=== PATIENT | female | born 1930 | race Caucasian/White ===

== ENCOUNTER → 2016-10-27 | Outpatient (CLI) | payer MEDICARE, OTHER ==
[~2016-10-27] MED LIST: ACYC-113 PO; ALBU90AE INH; ALEN70TA3 PO; AMLO10TA2 PO; ASCO500C2 PO; BIOT5CAP2 PO; CALC0.25 PO; CHOL200012 PO; CLON0.1T PO; DENO60DI SC; DOCU-30 PO; DOCU100T3 PO; DOXY-168 PO; EPOE10003 SC; FERR325T63 PO; FOLI-17 PO; FURO-92 PO; FURO20TA3 PO; GLIP2.5T3 PO; HYDR-3240 PO; HYDR-3241 PO; HYDR100T25 PO; LATA2.5D3 EACHEYE; LOSA100T6 PO; METH750T2 PO; METO25TA35 PO; MULT-208 PO; OXYC-302 PO; SEVE800T8 PO; SIMV10TA3 PO; SODI650T PO; TERA2CAP3 PO; VITA1TAB28 PO; WARF2.5T PO; WARF2.5T73 PO; WARF5TAB PO; WARF5TAB7 PO; [UNRECOGNIZED DRUG - OTHER] EACHEYE
[2016-10-27 10:54] LABS: HEMOGLOBIN 10.8 g/dL (11.7-16.4)
[2016-10-27 10:58] LABS: ASPARTATE AMINO TRANSFERASE 17 U/L (15-37); BLOOD UREA NITROGEN 34 mg/dL (7-18)
== END | disposition home or self-care (01) ==
LOC: STAR 09:19
PROVIDERS: ATTEND Surgery
DX: Z01.818 Encounter for other preprocedural examination (principal); R79.1 Abnormal coagulation profile
CPT/HCPCS: 36415; 80053; 85025; 85610; 85730; 93005

== ENCOUNTER 2016-10-31 08:18 | Observation (INO) | payer MEDICARE, OTHER ==
[~2016-10-31] VITALS: Ht 152.4 cm; Wt 49.3 kg
[~2016-10-31 08:18] MED LIST changes: +BUPIVACAINE/PF-EPI 0.25% 1:200K ONE
[2016-10-31] MEDS ORDERED: SODIUM CHLORIDE 0.9% 1,000 ML IV SCH (08:58)
[2016-10-31] MEDS ORDERED: LIDOCAINE 1%, 2ML SQ PRN (09:00)
[2016-10-31] MEDS ORDERED: LIDOCAINE 1%, 2ML ONE (09:04)
[2016-10-31] MEDS ORDERED: HYDROmorphone 2 MG/ML, 1ML ONE (09:05)
[2016-10-31] MEDS: HYDROmorphone 2 MG/ML, 1ML IVPush PRN ×2 (09:26→09:38)
[2016-10-31 09:39] LABS: BLOOD UREA NITROGEN 59 mg/dL (7-18)
[2016-10-31] MEDS ORDERED: FENTANYL PF 100 MCG/2ML ONE ×2 (10:46→12:58)
[2016-10-31] MEDS ORDERED: NEOSTIGMINE 1 MG/ML, 10ML ONE (11:10)
[2016-10-31] MEDS ORDERED: PROPOFOL 10 MG/ML, 20ML ONE (11:10)
[2016-10-31] MEDS ORDERED: ONDANSETRON 2MG/ML, 2ML ONE (11:10)
[2016-10-31] MEDS ORDERED: ROCURONIUM 10 MG/ML ONE (11:10)
[2016-10-31] MEDS ORDERED: GLYCOPYRROLATE 0.2MG/1ML ONE (11:10)
[2016-10-31] MEDS ORDERED: CEFAZOLIN 1,000 MG ONE (11:10)
[2016-10-31] MEDS ORDERED: OXYcodone 5 MG/5 ML ORAL.SOL UDC ONE (12:24)
[2016-10-31] MEDS ORDERED: HYDROmorphone 1 MG/ML, 1ML IV PRN (12:30)
[2016-10-31] MEDS ORDERED: ALBUTEROL SULFATE 2.5 MG/3 ML NPPB PRN (12:30)
[2016-10-31] MEDS ORDERED: EPHEDRINE 50 MG/ML, 1ML IVPush PRN (12:30)
[2016-10-31] MEDS ORDERED: OXYcodone 5 MG/5 ML ORAL.SOL UDC PO PRN (12:30)
[2016-10-31] MEDS ORDERED: ONDANSETRON 2MG/ML, 2ML IVPush PRN (12:30)
[2016-10-31] MEDS ORDERED: hydrALAzine 20 MG/ML, 1ML IV PRN (12:30)
[2016-10-31] MEDS ORDERED: ACETAMINOPHEN 325 MG TABLET PO PRN (12:30)
[2016-10-31] MEDS ORDERED: FENTANYL PF 100 MCG/2ML IV PRN (12:30)
[2016-10-31 12:52] LABS: IOPTH BASELINE 147 pg/mL
[2016-10-31] MEDS ORDERED: morphine SULFATE 10 MG/ML, 1ML IV PRN (14:00)
[2016-10-31] MEDS ORDERED: LACTATED RINGERS 1,000 ML IV SCH (14:00)
[2016-10-31] MEDS ORDERED: HYDROcodone/APAP 5/325 TABLET PO PRN (14:00)
[2016-10-31] MEDS ORDERED: ONDANSETRON 2MG/ML, 2ML IV PRN (14:00)
[2016-10-31] MEDS ORDERED: METHOCARBAMOL 750 MG TABLET PO PRN (14:30)
[2016-10-31] MEDS ORDERED: DOCUSATE 100 MG CAPSULE PO PRN (14:30)
[2016-10-31] MEDS ORDERED: ALBUTEROL SULFATE 2.5 MG/3 ML HHN PRN (14:30)
[2016-10-31] MEDS ORDERED: CALCITRIOL 0.25 MCG CAPSULE PO SCH (15:00)
[2016-10-31] MEDS: FOLIC ACID 1 MG TABLET PO SCH (15:30)
[2016-10-31] MEDS: ASCORBIC ACID 500 MG TABLET PO SCH (15:30)
[2016-10-31] MEDS: CHOLECALCIFEROL 1,000 UNIT TABLET PO SCH (15:30)
[2016-10-31] MEDS: CALCIUM CARBONATE 500 MG TAB.CHEW PO SCH ×2 (16:57→21:07)
[2016-10-31] MEDS: AMLODIPINE 5 MG TABLET PO SCH (17:00)
[2016-10-31] MEDS: SEVELAMER 800MG TABLET PO SCH (18:24)
[2016-10-31 19:26] VITALS: BP 152/56
[2016-10-31] MEDS ORDERED: LATANOPROST OPHTH 0.005%, 2.5ML EACHEYE SCH (21:00)
[2016-10-31] MEDS ORDERED: SIMVASTATIN 10 MG TABLET PO SCH (21:00)
[2016-10-31] MEDS ORDERED: TERAZOSIN 2MG CAPSULE PO SCH (21:00)
[2016-10-31] MEDS: FERROUS SULFATE 325 MG TABLET PO SCH (21:06)
[2016-11-01 00:02] VITALS: BP 157/52
[2016-11-01 03:15] VITALS: BP 125/71
[2016-11-01 03:52] VITALS: BP 153/64
[2016-11-01 07:08] VITALS: BP 149/61
[2016-11-01] MEDS: AMLODIPINE 5 MG TABLET PO SCH (08:57)
[2016-11-01] MEDS: ASCORBIC ACID 500 MG TABLET PO SCH (09:00)
[2016-11-01] MEDS: FOLIC ACID 1 MG TABLET PO SCH (09:00)
[2016-11-01] MEDS ORDERED: MULTIVITS,STRESS FORMULA 1 TABLET PO SCH (09:00)
[2016-11-01] MEDS ORDERED: LOSARTAN 50MG TABLET PO SCH (09:00)
[2016-11-01] MEDS ORDERED: WARFARIN 5 MG TABLET PO-COUM SCH (09:00)
[2016-11-01] MEDS: FERROUS SULFATE 325 MG TABLET PO SCH (09:00)
[2016-11-01] MEDS: CHOLECALCIFEROL 1,000 UNIT TABLET PO SCH (09:00)
[2016-11-01] MEDS: SEVELAMER 800MG TABLET PO SCH ×2 (09:01→11:28)
[2016-11-01] MEDS ORDERED: HYDR-3240 PO (09:20)
[2016-11-01 13:56] LABS: HEP B SURF. AB 20.5 mIU/mL (0.0-10.0)
[2016-11-01 14:29] VITALS: BP 152/51
== END 2016-11-01 16:00 | disposition home or self-care (01) ==
LOC: OUT 08:18 → 4NOR 13:38 → OUT 21:55 → 4NOR 21:55
PROVIDERS: ADMIT Surgery; ATTEND Surgery
DX: E21.0 Primary hyperparathyroidism (principal); D35.1 Benign neoplasm of parathyroid gland; D63.1 Anemia in chronic kidney disease; N18.6 End stage renal disease; I12.0 Hypertensive chronic kidney disease with stage 5 chronic kidney disease or end stage renal disease; E83.52 Hypercalcemia; M81.0 Age-related osteoporosis without current pathological fracture; J45.909 Unspecified asthma, uncomplicated; G89.18 Other acute postprocedural pain; N25.0 Renal osteodystrophy; E46 Unspecified protein-calorie malnutrition; Z99.2 Dependence on renal dialysis; Z90.49 Acquired absence of other specified parts of digestive tract; Z90.710 Acquired absence of both cervix and uterus
CPT/HCPCS: 36415; 60500; 80048; 82040; 82310; 82962; 83970; 85610; 86704; 86706; 87340; 88305; 88333; C1760; G0378; J0690; J1170; J2405; J2704; J2710; J3010; J3490; J7030; J7120

== ENCOUNTER → 2017-02-02 | Outpatient (CLI) | payer MEDICARE, OTHER ==
[~2017-02-02] MED LIST changes: -BIOT5CAP2 PO; +BIOT5CAP3 PO; -BUPIVACAINE/PF-EPI 0.25% 1:200K ONE
== END | disposition home or self-care (01) ==
LOC: CFH 10:38
PROVIDERS: ATTEND Nurse Practitioner Family
DX: Z13.820 Encounter for screening for osteoporosis (principal); M80.88XS Other osteoporosis with current pathological fracture, vertebra(e), sequela
CPT/HCPCS: 77080

== ENCOUNTER → 2017-11-28 | Outpatient (CLI) | payer MEDICARE, OTHER ==
[~2017-11-28] MED LIST changes: -CHOL200012 PO; +CHOL200074 PO; +DOCU-131 PO; -DOCU-30 PO; -DOXY-168 PO; +DOXY100T10 PO; +WARF-36 PO; -WARF5TAB7 PO
== END ==
LOC: RAD 11:06
PROVIDERS: ATTEND Orthopaedic Surgery Orthopaedic Surgery of the Spine
DX: S22.050A Wedge compression fracture of T5-T6 vertebra, initial encounter for closed fracture (principal); M85.89 Other specified disorders of bone density and structure, multiple sites; X58.XXXA Exposure to other specified factors, initial encounter; Y93.89 Activity, other specified; Y92.89 Other specified places as the place of occurrence of the external cause; Y99.8 Other external cause status
CPT/HCPCS: 78306; A9503

== ENCOUNTER 2019-05-22 17:51 | Inpatient (IN) | payer MEDICARE ==
[~2019-05-22] VITALS: Ht 152.4 cm; Wt 47.0 kg
[~2019-05-22 17:51] MED LIST changes: -AMLO10TA2 PO; +AMLO10TA8 PO; -CLON0.1T PO; +CLON0.1T22 PO; +LOSA100T14 PO; -LOSA100T6 PO; +WARF2.5T32 PO; -WARF2.5T73 PO
--- NOTE | 2019-05-22 18:12 | NUR ---
PT REPORTS BEING SOB FOR 2 WEEKS. NORMALLY CAN WALK 3 FLIGHTS OF STAIRS, STATES "3 STEPS I AM OUT OF BREATH". UNABLE TO LAY FLAT. RA IS 88%. APPLIED 2 LO2 NOW, 92%. DIALYSIS TODAY. PT IS NOT IN DISTRESS. RESPIRATOINS EVEN AND UNLABORED
[2019-05-22 18:59] LABS: BASOPHILS # (AUTO) 0.02 x10^3/uL (0-0.1); BASOPHILS % (AUTO) 1 % (0-1); EOSINOPHILS # (AUTO) 0.04 x10^3/uL (0-0.4); EOSINOPHILS % (AUTO) 1 % (1-7); LYMPHOCYTES # (AUTO) 0.86 x10^3/uL (1-3.4); LYMPHOCYTES % (AUTO) 22 % (22-44); MD NO; MEAN CORPUSCULAR HGB CONC 33.6 g/dL (32.4-35.8); MEAN CORPUSCULAR VOLUME 100.9 fL (80-100); MEAN PLATELET VOLUME 7.8 fL (7.4-10.4); MONOCYTES # (AUTO) 0.46 x10^3/uL (0.2-0.8); MONOCYTES % (AUTO) 12 % (2-9); NEUTROPHILS # (AUTO) 2.63 x10^3/uL (1.8-6.8); NEUTROPHILS % (AUTO) 66 % (42-75); PLATELET COUNT 126 x10^3/uL (130-400); RED BLOOD COUNT 3.03 x10^6/uL (3.82-5.3); RED CELL DISTRIBUTION WIDTH 18.3 % (9.6-15.2)
[2019-05-22 19:07] LABS: ANION GAP 7 mmol/L (5-15); CALCIUM 8.9 mg/dL (8.5-10.1); CHLORIDE 100 mmol/L (98-107); CREATININE 3.02 mg/dL (0.55-1.02)
[2019-05-22 19:08] LABS: ALBUMIN 3.8 g/dL (3.4-5.0)
[2019-05-22 19:11] LABS: TROPONIN I < 0.015 ng/mL (0.000-0.045)
--- NOTE | 2019-05-22 19:18 | NUR ---
GIVEN PT PILLOW. CYLINDER FILLER APPLIED. PT RESTING COMFORTABLE
--- NOTE | 2019-05-22 19:52 | NUR ---
PT SITTING COMFORTABLE TALKING ON PHONE. VS STABLE.
[2019-05-22] MEDS ORDERED: TEMPLATE NON-FORMULARY MED. (Denosumab (Prolia) 60 MG) SC SCH (21:00)
[2019-05-22] MEDS ORDERED: METHOCARBAMOL 750 MG TABLET PO PRN (21:00)
[2019-05-22] MEDS ORDERED: FUROSEMIDE 100 MG/10 ML IV ONE (21:00)
[2019-05-22] MEDS ORDERED: EPOETIN ALFA SC SCH (21:00)
[2019-05-22] MEDS ORDERED: ACETAMINOPHEN 325 MG TABLET PO PRN (21:00)
[2019-05-22] MEDS ORDERED: POLYETHYLENE GLYCOL 17 GM PACKET PO PRN (21:00)
[2019-05-22] MEDS ORDERED: SODIUM CHLORIDE FLUSH 10ML SYR IVF PRN (21:00)
[2019-05-22] MEDS ORDERED: ONDANSETRON ODT 4 MG PO PRN (21:00)
[2019-05-22] MEDS: LATANOPROST OPHTH 0.005%, 2.5ML EACHEYE SCH (21:00)
[2019-05-22] MEDS ORDERED: BISACODYL 10 MG SUPP PR PRN (21:00)
[2019-05-22] MEDS ORDERED: DOCUSATE 100 MG CAPSULE PO PRN (21:00)
[2019-05-22 21:22] LABS: INTERNATIONAL NORMALIZED RATIO 2.89 (0.93-1.1); PROTHROMBIN TIME 29.1 Seconds (9.6-11.5)
[2019-05-22 21:42] LABS: HEMOGLOBIN A1C 5.1 % (4.2-6.3)
[2019-05-22] MEDS ORDERED: ALBUTEROL SULFATE 2.5 MG/3 ML NPPB PRN (22:30)
[2019-05-22 22:38] VITALS: BP 151/72
[2019-05-22] MEDS: SEVELAMER CARBONATE 800MG TAB PO SCH (23:14)
[2019-05-22] MEDS: TERAZOSIN 2MG CAPSULE PO SCH (23:14)
[2019-05-22] MEDS: SODIUM CHLORIDE FLUSH 10ML SYR IVF SCH (23:16)
[2019-05-22] MEDS: SIMVASTATIN 10 MG TABLET PO SCH (23:16)
[2019-05-23 03:06] VITALS: BP 136/68
[2019-05-23 05:36] LABS: BASOPHILS # (AUTO) 0.03 x10^3/uL (0-0.1); BASOPHILS % (AUTO) 1 % (0-1); EOSINOPHILS # (AUTO) 0.03 x10^3/uL (0-0.4); EOSINOPHILS % (AUTO) 1 % (1-7); LYMPHOCYTES # (AUTO) 0.91 x10^3/uL (1-3.4); LYMPHOCYTES % (AUTO) 23 % (22-44); MD NO; MEAN CORPUSCULAR HEMOGLOBIN 33.8 pg (27.0-34.8); MEAN CORPUSCULAR HGB CONC 33.3 g/dL (32.4-35.8); MEAN CORPUSCULAR VOLUME 101.5 fL (80-100); MEAN PLATELET VOLUME 7.9 fL (7.4-10.4); MONOCYTES # (AUTO) 0.42 x10^3/uL (0.2-0.8); MONOCYTES % (AUTO) 11 % (2-9); NEUTROPHILS # (AUTO) 2.51 x10^3/uL (1.8-6.8); NEUTROPHILS % (AUTO) 64 % (42-75); PLATELET COUNT 123 x10^3/uL (130-400); RED BLOOD COUNT 2.86 x10^6/uL (3.82-5.3); RED CELL DISTRIBUTION WIDTH 18.6 % (9.6-15.2)
[2019-05-23 05:49] LABS: ALANINE AMINOTRANSFERASE 30 U/L (12-78); ALBUMIN 3.4 g/dL (3.4-5.0); ANION GAP 7 mmol/L (5-15); CALCIUM 8.5 mg/dL (8.5-10.1); CHLORIDE 102 mmol/L (98-107); CREATININE 3.96 mg/dL (0.55-1.02)
[2019-05-23 05:52] LABS: ALKALINE PHOSPHATASE 102 U/L (45-117); BILIRUBIN,TOTAL 0.5 mg/dL (0.2-1.0); TOTAL PROTEIN 6.6 g/dL (6.4-8.2)
[2019-05-23 07:30] VITALS: BP 127/64
[2019-05-23] MEDS: SODIUM CHLORIDE FLUSH 10ML SYR IVF SCH ×2 (09:00→21:29)
[2019-05-23] MEDS ORDERED: TEMPLATE NON-FORMULARY MED. (Biotin** 5 MG) PO SCH (09:00)
[2019-05-23] MEDS: MULTIVITS,STRESS FORMULA 1 TABLET PO SCH (09:30)
[2019-05-23] MEDS: AMLODIPINE 10 MG TAB PO SCH (09:30)
[2019-05-23] MEDS: FERROUS SULFATE 325 MG TABLET PO SCH (09:30)
[2019-05-23] MEDS: LOSARTAN 50MG TABLET PO SCH (09:31)
[2019-05-23] MEDS: FOLIC ACID 1 MG TABLET PO SCH (09:31)
[2019-05-23] MEDS: SENNA/DOCUSATE TABLET PO SCH (09:31)
[2019-05-23] MEDS: CHOLECALCIFEROL 1,000 UNIT TABLET PO SCH (09:31)
[2019-05-23] MEDS: SEVELAMER CARBONATE 800MG TAB PO SCH ×3 (09:31→21:26)
[2019-05-23] MEDS: ASCORBIC ACID 500 MG TABLET PO SCH (09:31)
[2019-05-23 13:20] VITALS: BP 130/65
[2019-05-23 13:35] VITALS: BP 146/81
[2019-05-23] MEDS ORDERED: WARFARIN 5 MG TABLET PO-COUM SCH (18:00)
[2019-05-23 19:57] VITALS: BP 137/73
[2019-05-23 21:08] LABS: INTERNATIONAL NORMALIZED RATIO 2.04 (0.93-1.1); PROTHROMBIN TIME 20.8 Seconds (9.6-11.5)
[2019-05-23 21:23] VITALS: BP 155/52
[2019-05-23] MEDS: SIMVASTATIN 10 MG TABLET PO SCH (21:27)
[2019-05-23] MEDS: TERAZOSIN 2MG CAPSULE PO SCH (21:28)
[2019-05-23] MEDS: LATANOPROST OPHTH 0.005%, 2.5ML EACHEYE SCH (21:29)
[2019-05-24 01:27] VITALS: BP 146/65
[2019-05-24 05:24] LABS: BASOPHILS # (AUTO) 0.02 x10^3/uL (0-0.1); BASOPHILS % (AUTO) 1 % (0-1); EOSINOPHILS # (AUTO) 0.06 x10^3/uL (0-0.4); EOSINOPHILS % (AUTO) 1 % (1-7); LYMPHOCYTES # (AUTO) 1.21 x10^3/uL (1-3.4); LYMPHOCYTES % (AUTO) 24 % (22-44); MD NO; MEAN CORPUSCULAR HEMOGLOBIN 34.3 pg (27.0-34.8); MEAN PLATELET VOLUME 7.9 fL (7.4-10.4); MONOCYTES # (AUTO) 0.53 x10^3/uL (0.2-0.8); MONOCYTES % (AUTO) 11 % (2-9); NEUTROPHILS # (AUTO) 3.24 x10^3/uL (1.8-6.8); NEUTROPHILS % (AUTO) 64 % (42-75); PLATELET COUNT 136 x10^3/uL (130-400); RED CELL DISTRIBUTION WIDTH 18.7 % (9.6-15.2)
[2019-05-24 05:39] LABS: ANION GAP 8 mmol/L (5-15); CALCIUM 8.3 mg/dL (8.5-10.1); CHLORIDE 103 mmol/L (98-107)
[2019-05-24 05:40] LABS: CREATININE 5.58 mg/dL (0.55-1.02)
[2019-05-24 06:57] VITALS: BP 132/63
[2019-05-24] MEDS: SEVELAMER CARBONATE 800MG TAB PO SCH ×2 (08:00→12:26)
[2019-05-24] MEDS ORDERED: CALCITRIOL 0.25 MCG CAPSULE PO SCH (09:00)
[2019-05-24 12:23] VITALS: BP 143/56
[2019-05-24] MEDS: AMLODIPINE 10 MG TAB PO SCH (12:25)
[2019-05-24] MEDS: FERROUS SULFATE 325 MG TABLET PO SCH (12:25)
[2019-05-24] MEDS: SENNA/DOCUSATE TABLET PO SCH (12:25)
[2019-05-24] MEDS: MULTIVITS,STRESS FORMULA 1 TABLET PO SCH (12:25)
[2019-05-24] MEDS: LOSARTAN 50MG TABLET PO SCH (12:26)
[2019-05-24] MEDS: CHOLECALCIFEROL 1,000 UNIT TABLET PO SCH (12:26)
[2019-05-24] MEDS: ASCORBIC ACID 500 MG TABLET PO SCH (12:27)
[2019-05-24] MEDS: FOLIC ACID 1 MG TABLET PO SCH (12:27)
[2019-05-24] MEDS: SODIUM CHLORIDE FLUSH 10ML SYR IVF SCH (12:27)
== END 2019-05-24 16:03 | disposition home or self-care (01) | DRG 291 ==
LOC: ED 20:06 → EDIP 20:39 → 5SO 22:09 → DCLOUNGE 05-24 15:53
PROVIDERS: ADMIT Family Medicine; ATTEND Family Medicine
PROC: 5A1D70Z Performance of Urinary Filtration, Intermittent, Less than 6 Hours Per Day (ICD-10-PCS; 2019-05-23)
PROC: 5A1D70Z Performance of Urinary Filtration, Intermittent, Less than 6 Hours Per Day (ICD-10-PCS; principal; 2019-05-24)
DX: I13.2 Hypertensive heart and chronic kidney disease with heart failure and with stage 5 chronic kidney disease, or end stage renal disease (principal); J96.01 Acute respiratory failure with hypoxia; N18.6 End stage renal disease; I50.33 Acute on chronic diastolic (congestive) heart failure; D68.69 Other thrombophilia; I48.20 Chronic atrial fibrillation, unspecified; Z88.8 Allergy status to other drugs, medicaments and biological substances; D53.9 Nutritional anemia, unspecified; D63.1 Anemia in chronic kidney disease; D69.6 Thrombocytopenia, unspecified; E11.22 Type 2 diabetes mellitus with diabetic chronic kidney disease; E78.5 Hyperlipidemia, unspecified; E87.6 Hypokalemia; I08.1 Rheumatic disorders of both mitral and tricuspid valves; I27.20 Pulmonary hypertension, unspecified; I70.0 Atherosclerosis of aorta; J45.909 Unspecified asthma, uncomplicated; N25.0 Renal osteodystrophy; Z79.01 Long term (current) use of anticoagulants; Z79.84 Long term (current) use of oral hypoglycemic drugs; Z83.3 Family history of diabetes mellitus; Z90.5 Acquired absence of kidney; Z90.710 Acquired absence of both cervix and uterus; Z95.0 Presence of cardiac pacemaker; Z99.2 Dependence on renal dialysis; Z90.49 Acquired absence of other specified parts of digestive tract
CPT/HCPCS: 36415; 71045; 80048; 80053; 82040; 82607; 83036; 83735; 83880; 84484; 85025; 85610; 86705; 86706; 87340; 90935; 93005; 93306; 99285; G0378; J1940

== ENCOUNTER → 2019-09-03 | Outpatient (CLI) | payer MEDICARE ==
[~2019-09-03] MED LIST changes: -DOXY100T10 PO; +DOXY100T23 PO
== END | disposition home or self-care (01) ==
LOC: CFH 14:36
PROVIDERS: ATTEND Family Medicine
DX: N26.1 Atrophy of kidney (terminal) (principal); N28.89 Other specified disorders of kidney and ureter; M54.5 Low back pain; R31.9 Hematuria, unspecified
CPT/HCPCS: 76770

== ENCOUNTER → 2019-09-05 | Outpatient (CLI) | payer MEDICARE ==
[~2019-09-05] MED LIST changes: +OMNIPAQUE 350 MG/ML, 100ML BOTTLE ONE
== END | disposition home or self-care (01) ==
LOC: CFH 08:06
PROVIDERS: ATTEND Nurse Practitioner
DX: N28.89 Other specified disorders of kidney and ureter (principal); I51.7 Cardiomegaly; R59.0 Localized enlarged lymph nodes; Z90.49 Acquired absence of other specified parts of digestive tract
CPT/HCPCS: 74178; 82565; Q9967

== ENCOUNTER 2020-07-07 13:11 | Inpatient (IN) | payer MEDICARE ==
[~2020-07-07] VITALS: Ht 149.9 cm; Wt 50.4 kg
[~2020-07-07 13:11] MED LIST changes: +AMLO-211 PO; -AMLO10TA8 PO; -LATA2.5D3 EACHEYE; +LATA2.5D4 EACHEYE; -OMNIPAQUE 350 MG/ML, 100ML BOTTLE ONE; +SIMV10TA18 PO; -SIMV10TA3 PO; -WARF2.5T PO; +WARF2.5T2 PO; -WARF5TAB PO; +WARF5TAB2 PO
--- NOTE | 2020-07-07 13:35 | NUR ---
Note kathleen in EDM - 07/07/20 at 1347 by MARC FALL PRECAUTIONS IN PLACE. PT INSTRUCTED ON USE OF CALL LIGHT, VERBALIZED UNDERSTANDING. CALL LIGHT W/IN REACH. AT BEDSIDE FOR EVAL. CONTINUOUS SPO2 AND CARDIAC MONITORING IN PLACE. VSS. BEDSIDE REPORT TO OLY ASHER.
--- NOTE | 2020-07-07 13:35 | NUR ---
FALL PRECAUTIONS IN PLACE. PT INSTRUCTED ON USE OF CALL LIGHT, VERBALIZED UNDERSTANDING. CALL LIGHT W/IN REACH. MD AT BEDSIDE FOR EVAL. CONTINUOUS SPO2 AND CARDIAC MONITORING IN PLACE. VSS. BEDSIDE REPORT TO OLY ASHER.
--- NOTE | 2020-07-07 14:00 | NUR ---
PT SITTING UP ON GURNEY AWAKE & TALKING ON CELLPHONE, RESPONDS APPROP TO STAFF, NAD & REPORTS PAIN IS A LITTLE BETTER ("I TOOK A 7.5 NORCO BEFORE I CAME HERE"), COMFORT MEASURES PROVIDED, CALL LIGHT WITHIN REACH.
--- NOTE | 2020-07-07 14:23 | NUR ---
Tal miltonsloan in ED - 07/07/20 at 1425 by MARC PT SITTING UP ON GURNEY AWAKE & TALKING ON CELLPHONE, RESPONDS APPROP TO STAFF, NAD & REPORTS PAIN IS A LITTLE BETTER ("I TOOK A 7.5 NORCO BEFORE I CAME HERE"), COMFORT MEASURES PROVIDED, CALL LIGHT WITHIN REACH.
--- NOTE | 2020-07-07 15:03 | NUR ---
PT CONTINUES SITTING UP ON GURNEY AWAKE & MOSTLY TALKING ON CELLPHONE, RESPONDS APPROP TO STAFF, NAD, COMFORT MEASURES PROVIDED, CALL LIGHT WITHIN REACH.
--- NOTE | 2020-07-07 15:32 | NUR ---
PT TO CT
--- NOTE | 2020-07-07 16:02 | NUR ---
PT LAYING ON GURNEY WITH EYES CLOSED, RESPONDS APPROP TO STAFF, NAD AT REST, NO NEEDS AT THIS TIME, CALL LIGHT WITHIN REACH.
--- NOTE | 2020-07-07 16:45 | NUR ---
Tal wang in [facility] - 07/07/20 at 1645 by MARC Patient given discharge instructions and they have confirmed that they understand the instructions. Patient ambulatory with steady gait.
--- NOTE | 2020-07-07 17:02 | NUR ---
PT ATTEMPTED TO AMBULATE VIA FWW, UNSTEADY WHE TAKING MORE THAN 1 STEP- DR REARDON & YAMILETH DAVIDSON AWARE; PT BCK TO GURNEY AWAKE & COMFORTABLE, RESPONDS APPROP TO STAFF, NAD AT REST, NO NEEDS AT THIS TIME, CALL LIGHT WITHIN REACH.
[2020-07-07] MEDS ORDERED: MORPHINE SULFATE 4 MG/ML, 1ML IVPush PRN (17:30)
[2020-07-07] MEDS ORDERED: SODIUM CHLORIDE FLUSH 10ML SYR IVF ONE (17:30)
[2020-07-07] MEDS ORDERED: ONDANSETRON 2MG/ML, 2ML IVPush ONE (17:30)
[2020-07-07] MEDS ORDERED: CARV25TA12 PO (17:34)
[2020-07-07 17:42] LABS: BASOPHILS % (AUTO) 1 % (0-1); EOSINOPHILS % (AUTO) 0 % (1-7); LYMPHOCYTES % (AUTO) 25 % (22-44); MEAN CORPUSCULAR HEMOGLOBIN 32.8 pg (27.0-34.8); MEAN CORPUSCULAR HGB CONC 32.9 g/dL (32.4-35.8); MONOCYTES % (AUTO) 14 % (2-9); NEUTROPHILS % (AUTO) 59 % (42-75); PLATELET COUNT 139 x10^3/uL (130-400); RED BLOOD COUNT 3.11 x10^6/uL (3.82-5.3); RED CELL DISTRIBUTION WIDTH 17.3 % (9.6-15.2)
[2020-07-07 17:43] LABS: ANION GAP 3 mmol/L (5-15); CALCIUM 8.8 mg/dL (8.5-10.1); CHLORIDE 95 mmol/L (98-107); CREATININE 3.81 mg/dL (0.55-1.02)
[2020-07-07 17:46] LABS: MD NO
[2020-07-07] MEDS ORDERED: BISACODYL 10 MG SUPP PR PRN (18:00)
[2020-07-07] MEDS: SEVELAMER CARBONATE 800MG TAB PO SCH (18:00)
[2020-07-07] MEDS ORDERED: POLYETHYLENE GLYCOL 17 GM PACKET PO PRN (18:00)
[2020-07-07] MEDS ORDERED: ALBUTEROL SULFATE 200 PUFFS/8.5 GR INH INH PRN (18:00)
[2020-07-07] MEDS ORDERED: EPOETIN ALFA SC SCH (18:00)
[2020-07-07] MEDS ORDERED: SODIUM CHLORIDE FLUSH 10ML SYR IVF PRN (18:00)
[2020-07-07] MEDS ORDERED: TEMPLATE NON-FORMULARY MED. (Denosumab (Prolia) 60 MG) SC SCH (18:00)
[2020-07-07] MEDS ORDERED: ACETAMINOPHEN 325 MG TABLET PO PRN (18:00)
[2020-07-07] MEDS ORDERED: ONDANSETRON ODT 4 MG PO PRN (18:00)
[2020-07-07] MEDS ORDERED: WARFARIN 5 MG TABLET PO-COUM SCH (18:00)
[2020-07-07] MEDS ORDERED: morphine SULFATE 10 MG/ML, 1ML IVPush PRN (18:00)
--- NOTE | 2020-07-07 18:01 | NUR ---
PT CONTINUES SITTING UP ON GURNEY AWAKE & EATING DINNER, RESPONDS APPROP TO STAFF, NAD, NO OTHER NEEDS AT THIS TIME, CALL LIGHT WITHIN REACH.
[2020-07-07 18:14] LABS: INTERNATIONAL NORMALIZED RATIO 4.32 (0.93-1.1); PROTHROMBIN TIME 45.1 Seconds (9.6-11.5)
--- NOTE | 2020-07-07 19:02 | NUR ---
REPORT GIVEN TO MARCELA
[2020-07-07] MEDS: SODIUM CHLORIDE FLUSH 10ML SYR IVF SCH (20:07)
[2020-07-07] MEDS ORDERED: CHOLECALCIFEROL 1,000 UNIT TABLET ONE (20:29)
--- NOTE | 2020-07-07 20:51 | NUR ---
Report given to LAKESHIA Stearns.
[2020-07-07] MEDS ORDERED: TERAZOSIN 2MG CAPSULE PO SCH (21:00)
[2020-07-07] MEDS ORDERED: LATANOPROST OPHTH 0.005%, 2.5ML EACHEYE SCH (21:00)
[2020-07-07] MEDS ORDERED: CHOLECALCIFEROL 1,000 UNIT TABLET PO SCH (21:00)
[2020-07-07] MEDS ORDERED: SIMVASTATIN 10 MG TABLET PO SCH (21:00)
[2020-07-07 21:35] VITALS: BP 144/54
[2020-07-08 01:44] VITALS: BP 147/67
[2020-07-08] MEDS ORDERED: HYDROcodone/APAP 5/325 TABLET ONE (05:21)
[2020-07-08 06:50] LABS: BASOPHILS % (AUTO) 1 % (0-1); EOSINOPHILS % (AUTO) 1 % (1-7); LYMPHOCYTES % (AUTO) 26 % (22-44); MEAN CORPUSCULAR HEMOGLOBIN 32.9 pg (27.0-34.8); MEAN PLATELET VOLUME 7.6 fL (7.4-10.4); MONOCYTES % (AUTO) 15 % (2-9); NEUTROPHILS % (AUTO) 58 % (42-75); PLATELET COUNT 122 x10^3/uL (130-400); RED BLOOD COUNT 2.82 x10^6/uL (3.82-5.3); RED CELL DISTRIBUTION WIDTH 17.7 % (9.6-15.2)
[2020-07-08 06:51] LABS: MD NO
[2020-07-08 07:00] LABS: ALBUMIN 2.6 g/dL (3.4-5.0); ANION GAP 6 mmol/L (5-15); CALCIUM 8.4 mg/dL (8.5-10.1); CHLORIDE 96 mmol/L (98-107); INTERNATIONAL NORMALIZED RATIO 4.68 (0.93-1.1); PROTHROMBIN TIME 48.9 Seconds (9.6-11.5)
[2020-07-08 07:03] LABS: ALANINE AMINOTRANSFERASE 17 U/L (12-78); ALKALINE PHOSPHATASE 182 U/L (45-117); BILIRUBIN,TOTAL 0.6 mg/dL (0.2-1.0); CREATININE 4.39 mg/dL (0.55-1.02); TOTAL PROTEIN 6.1 g/dL (6.4-8.2)
[2020-07-08] MEDS: SEVELAMER CARBONATE 800MG TAB PO SCH ×3 (08:00→19:04)
[2020-07-08] MEDS ORDERED: CARVEDILOL 25 MG TABLET PO SCH (09:00)
[2020-07-08] MEDS ORDERED: TEMPLATE NON-FORMULARY MED. (Biotin** 1 MG) PO SCH (09:00)
[2020-07-08] MEDS ORDERED: FOLIC ACID 1 MG TABLET PO SCH (09:00)
[2020-07-08] MEDS ORDERED: AMLODIPINE 5 MG TABLET PO SCH (09:00)
[2020-07-08] MEDS ORDERED: SENNA/DOCUSATE TABLET PO SCH (09:00)
[2020-07-08 09:05] VITALS: BP 149/61
[2020-07-08] MEDS: SODIUM CHLORIDE FLUSH 10ML SYR IVF SCH (11:23)
[2020-07-08 18:19] VITALS: BP 139/67
[2020-07-09] MEDS ORDERED: CALCITRIOL 0.25 MCG CAPSULE PO SCH (09:00)
== END 2020-07-08 21:55 | disposition home or self-care (01) | DRG 542 ==
LOC: ED 14:11 → UNDOADMIN 17:52 → EDIP 17:52 → 5SO 17:54 → EDIP 21:13 → 5SO 21:13
PROVIDERS: ADMIT Hospitalist; ATTEND Hospitalist
DX: M48.56XA Collapsed vertebra, not elsewhere classified, lumbar region, initial encounter for fracture (principal); N18.6 End stage renal disease; I50.32 Chronic diastolic (congestive) heart failure; D68.69 Other thrombophilia; I48.20 Chronic atrial fibrillation, unspecified; J98.11 Atelectasis; R18.8 Other ascites; I13.2 Hypertensive heart and chronic kidney disease with heart failure and with stage 5 chronic kidney disease, or end stage renal disease; N25.0 Renal osteodystrophy; D63.1 Anemia in chronic kidney disease; E77.8 Other disorders of glycoprotein metabolism; E78.5 Hyperlipidemia, unspecified; E11.22 Type 2 diabetes mellitus with diabetic chronic kidney disease; E88.09 Other disorders of plasma-protein metabolism, not elsewhere classified; I27.20 Pulmonary hypertension, unspecified; I34.0 Nonrheumatic mitral (valve) insufficiency; J45.909 Unspecified asthma, uncomplicated; K57.30 Diverticulosis of large intestine without perforation or abscess without bleeding; M81.0 Age-related osteoporosis without current pathological fracture; Z79.01 Long term (current) use of anticoagulants; Z79.84 Long term (current) use of oral hypoglycemic drugs; Z83.3 Family history of diabetes mellitus; Z90.49 Acquired absence of other specified parts of digestive tract; Z90.5 Acquired absence of kidney; Z90.710 Acquired absence of both cervix and uterus; Z99.2 Dependence on renal dialysis; Z95.0 Presence of cardiac pacemaker; Z88.8 Allergy status to other drugs, medicaments and biological substances; Z88.1 Allergy status to other antibiotic agents; Z79.899 Other long term (current) drug therapy
CPT/HCPCS: 36415; 74176; 80048; 80053; 82040; 85025; 85610; 93005; G0378; J2270